=== PATIENT | female | born 1995 | race Caucasian/White ===

== ENCOUNTER 2021-01-03 06:55 | Day surgery (SDC) | payer MEDICAID, SELFPAY ==
[~2021-01-03] VITALS: Ht 165.1 cm; Wt 122.5 kg
[2021-01-03] MEDS ORDERED: fentaNYL CITRATE/PF 100 MCG/2 ML AMP ONE (07:21)
[2021-01-03] MEDS ORDERED: SIMETHICONE 40 MG/0.6 ML ML ONE (07:21)
[2021-01-03] MEDS ORDERED: MIDAZOLAM HCL 5 MG/5 ML VIAL ONE (07:22)
[2021-01-03 07:48] LABS: HCG,QUAL RESULT NEGATIVE (NEGATIVE)
[2021-01-03] MEDS ORDERED: ONDANSETRON HCL 4 MG/2 ML VIAL ONE ×2 (07:55→10:57)
[2021-01-03] MEDS ORDERED: DEXAMETHASONE SOD PHOSPHATE 4 MG/ML VIAL ONE (10:57)
[2021-01-03] MEDS ORDERED: PROPOFOL 200MG/ 20ML VIAL (DIPRIVAN) IV ONE (10:57)
[2021-01-03] MEDS ORDERED: METOCLOPRAMIDE HCL 10 MG/2 ML VIAL ONE (10:57)
[2021-01-03] MEDS ORDERED: LR 1,000 ML IV SCH (11:45)
[2021-01-03] MEDS ORDERED: ONDANSETRON HCL 4 MG/2 ML VIAL IVP PRN (11:45)
[2021-01-03 12:10] VITALS: BP_SYST 124
== END 2021-01-03 12:25 | disposition home or self-care (01) ==
LOC: SDS 06:55 → SMU 06:56 → SDS 12:25
PROVIDERS: ATTEND Internal Medicine
DX: R19.4 Change in bowel habit (principal); K29.80 Duodenitis without bleeding; K29.50 Unspecified chronic gastritis without bleeding; R11.2 Nausea with vomiting, unspecified; K44.9 Diaphragmatic hernia without obstruction or gangrene; K64.8 Other hemorrhoids; K52.9 Noninfective gastroenteritis and colitis, unspecified; J45.909 Unspecified asthma, uncomplicated; K21.9 Gastro-esophageal reflux disease without esophagitis; F32.9 Major depressive disorder, single episode, unspecified; E66.01 Morbid (severe) obesity due to excess calories; Z68.42 Body mass index [BMI] 45.0-49.9, adult; Z79.899 Other long term (current) drug therapy
CPT/HCPCS: 36415; 43239; 45380; 84703; 87081; 88305; 88312; 88313; G0378; J1100; J2405; J2704; J2765; U0003; J2250; J3010